=== PATIENT | male | born 1995 | race Caucasian/White ===

== ENCOUNTER 2024-07-07 19:55 | Emergency (ER) | payer OTHER, SELFPAY ==
[2024-07-07 20:00] VITALS: BP 126/79
[2024-07-07] MEDS: MOTRIN 600 MG PO (20:09)
[2024-07-07 21:29] VITALS: BMI 34.6
--- NOTE | 2024-07-07 22:29 | ED.GENMED ---
History of Present Illness
General
Chief Complaint: Cold/Flu/URI Symptoms
Source: patient
Exam Limitations: none
Time Seen by Provider: 07/07/24 21:53
Nursing documentation reviewed up to this point in time: agreed with
History of Present Illness
History of Present Illness:
Patient to ED for flu like symptoms. Symptoms started today. He was seen at and diagnosed with flu. Patient reports high fever and was unsure of what medication to take. Brought self to ED for eval.
Past History
Past History
ED Past Medical History: Asthma and Other (Psoriatic arthritis)
ED Past Surgical History: Other (Eye surgery)
Social History
Tobacco: Non-smoker
Alcohol: None
Drug: None
Personal: Single
Living: with family
Employment: Student
Family History
Family History: Other (Noncontributory)
Review of Systems
Review of Systems
Allergies reviewed?: Yes
All Other Systems: ROS reviewed and negative except as documented in HPI and ROS
Constitutional: Reports fever and fatigue
EENT: Reports no symptoms
Respiratory: Reports cough
Cardiac: Reports no symptoms
ABD/GI: Reports no symptoms
: Reports no symptoms
Musculoskeletal: Reports no symptoms
Skin: Reports no symptoms
Neurological: Reports no symptoms
Psychiatric: Reports no symptoms
Phy Exam
General Physical Exam
General Presentation: mild distress
General age: appears stated age
General Skin: warm and dry
General Habitus: normal
General Mental: alert
ENT Exam
ENT Exam: EOMI, TM's normal and neck supple
Cardiovascular Exam
Cardiovascular Exam: regular rate/rhythm and no edema
Pulmonary Exam
Pulmonary Exam: lungs clear and no respiratory distress
Musculoskeletal Exam
Musculoskeletal Exam: full ROM and neuro vasc intact
Skin Exam
Skin Exam: normal color, warm/dry and no rash
Psychiatric Exam
Psychiatric Exam: normal mood/affect
Sepsis
Sepsis Screening
Sepsis Assessment: Sepsis Ruled Out
Sepsis Screen
Sepsis Screen: Sepsis Ruled Out
Date: 07/07/24
Time: 22:37
Course
Orders/Labs/Results
Orders:
Orders
07/07/24 20:07
Ibuprofen [Motrin] 600 mg .ROUTE .STK-MED ONE
07/07/24 20:09
Ibuprofen [Motrin] 600 mg PO NOW STA
07/07/24 22:25
Oseltamivir Phosphate [Tamiflu] 75 mg PO NOW STA
Vital Signs
Initial and Last Documented VS:
Initial Vital Signs
Temp Pulse Resp BP Pulse Ox
100.8 F H 110 16 126/79 100
07/07/24 20:00 07/07/24 20:00 07/07/24 20:00 07/07/24 20:00 07/07/24 20:00
Last Documented Vital Signs
Temp Pulse Resp BP Pulse Ox
98.8 F 78 18 126/79 94
07/07/24 22:32 07/07/24 22:32 07/07/24 22:32 07/07/24 20:00 07/07/24 22:32
*Critical Care Note
Total Time (30-74mins, 75-104mins- exclusive of procedures): Not Applicable
Update Note
Update Note:
Patient to ED for flu symptoms. Tested pos at . 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 Fever reduced in waiting room. Now with temp on 98.6. HR 72, reg., pulse ox 95% RA. Tamiflu started in dept. WIll discharge home and he will follow up with PCP. Given
instructions on s/s to return to ED and he is agreeable to plan
ED Attending Note
-
Portions of this chart may have been created with voice recognition software.� Occasional wrong word or��sound alike� substitutions may have occurred due to the inherent limitations of voice recognition software.
Discharge Plan
Departure
Patient Disposition: Home (Routine Discharge)
Date of Disposition: 07/07/24
Time of Disposition: 22:26
Patient with high blood pressure during this ER visit?: No
Condition: Good
Covid-19: Not Applicable
Discharge Problem:
Influenza A
Instructions: Fever, Adult (DC), Flu in adults - Discharge instructions
Prescriptions:
New
oseltamivir [Tamiflu] 75 mg capsule
75 mg PO BID Qty: 10 0RF
No Action
Psoriatic Arthritis Injection
1 dose SC [id number]
zolpidem [Ambien CR] 12.5 MG tablet,ext release multiphase
12.5 mg PO HS PRN (Reason: sleep)
acetaminophen 325 MG tablet
650 mg PO Q6HPRN PRN (Reason: mild pain/ fever>100.5F) 0RF
polyethylene glycol 3350 17 GRAMS powder in packet
17 grams PO DAILY 0RF
amoxicillin-pot clavulanate 1 TABLET tablet
1 tab PO Q12 Qty: 8 0RF
hydrocortisone 2.5 % cream with perineal applicator
1 applic HI HS PRN (Reason: hemorrhoids) Qty: 30 0RF
Referrals:
Alexis Ellsworth MD [Family Provider] - Follow up in 2-3 days
Stand Alone Forms: Return to Work
Activity Restrictions/Additional Instructions:
For fever take tylenol 1000mg (2 extra strength) every 6 hours. ALternate with ibuprofen 600mg every 6-8 hours. Increase your water intake.
Interventions
Interventions:
*Risk Screen - Suicide Last Done: 07/07/24 20:00
*General Assessment Last Done: 07/07/24 20:00
*Neglect/Abuse Screening Last Done: 07/07/24 20:00
ED- Pulmonary Assessment Last Done: 07/07/24 21:29
Discharge Date and Time
Print Language: HONDURAN
[2024-07-07] MEDS: TAMIFLU 75 MG PO (22:44)
== END 2024-07-07 23:05 | disposition home or self-care (01) ==
LOC: EMR 19:55
PROVIDERS: EMERGENCY PHYSICIAN Student in an Organized Health Care Education/Training Program; FAMILY PHYSICIAN Internal Medicine
DX: J10.1 Influenza due to other identified influenza virus with other respiratory manifestations (principal); J45.909 Unspecified asthma, uncomplicated
CPT/HCPCS: 99283

== ENCOUNTER → 2024-07-26 12:06 | Outpatient (REF) | payer OTHER, SELFPAY | LOC: RAD 12:06 | PROVIDERS: ATTENDING PHYSICIAN Physician Assistant | DX: J10.1 Influenza due to other identified influenza virus with other respiratory manifestations (principal) | CPT/HCPCS: 71046 ==

== ENCOUNTER 2024-07-29 16:09 | Emergency (ER) | payer OTHER, SELFPAY ==
[2024-07-29 16:11] VITALS: BP 110/65
[2024-07-29 16:32] LABS: % Basophils 0.5 % (0-2); % Eosinophils 0.4 % (0-6); % Immature Granulocytes 0.4 % (0-0.5); % Lymphocytes 6.5 % (20.5-51.1); % Neutrophils 78.2 % (42.2-75.2); Absolute Lymphocytes 0.5 10^3/uL (1.2-3.4); Absolute Monocytes 1.1 10^3/uL (0.1-0.6); Absolute Neutrophils 6.1 10^3/uL (1.4-6.5); Hematocrit 37.5 % (39.0-52.0); Hemoglobin 13.3 g/dL (13.0-18.0); Mean Corp Hgb Conc. 35.5 g/dL (33.0-37.0); Mean Corpuscular Hgb 29.6 pg (27.0-31.0); Mean Corpuscular Volume 83.3 fL (80.0-94.0); Mean Platelet Volume 10.9 fL (7.4-10.4); Nucleated Red Blood Cells % 0 % (-); Platelet Count 231 10^3/uL (130-400); Red Cell Dist. Width 12.7 % (11.5-14.5); White Blood Cell Count 7.7 10^3/uL (4.8-10.8)
[2024-07-29 16:45] LABS: ALT (SGPT) 22 U/L (0-50); AST (SGOT) 20 U/L (17-59); Albumin 4.2 g/dl (3.5-5.0); Alkaline Phosphatase 62 U/L (38-126); Blood Urea Nitrogen 15 mg/dl (9-20); Calcium 9.2 mg/dl (8.4-10.2); Carbon Dioxide 25 mmol/L (22-30); Chloride 99 mmol/L (98-107); Glucose 105 mg/dl (70-99); Potassium 4.1 mmol/L (3.5-5.1); Sodium 134 mmol/L (135-145); Total Bilirubin 0.8 mg/dl (0.2-1.3); Total Protein 6.5 g/dl (6.3-8.2); eGFR > 60.00
[2024-07-29 16:55] LABS: COVID-19 Antigen Negative (Negative); Troponin I < 0.012 ng/ml
[2024-07-29 18:03] VITALS: BP 134/69
--- NOTE | 2024-07-29 18:33 | ED.GENMED ---
History of Present Illness
General
Chief Complaint: Cold/Flu/URI Symptoms
Time Seen by Provider: 07/29/24 17:51
History of Present Illness
History of Present Illness:
28-year-old male with history of anxiety and depression presenting to the emergency department for fever, chills, body aches. Patient reports symptoms started today. Does note that 3 weeks ago he was diagnosed with the flu, with symptoms lasting
about a week. Patient did have interval improvement. Today he went to work and his boss noted that he did not look well. His boss subsequently took him to the hospital. Patient denies any vomiting or abdominal pain. Patient notes minimal cough.
He does note that when he got to the hospital, started developed left upper abdominal pain. Denies any surgeries in the abdomen in the past. Denies additional acute medical complaints.
Past History
Past History
ED Past Medical History: Asthma and Other (Psoriatic arthritis)
ED Past Surgical History: Other (Eye surgery)
Social History
Tobacco: Non-smoker
Alcohol: None
Drug: None
Personal: Single
Living: with family
Employment: Student
Family History
Family History: Other (Noncontributory)
Phy Exam
Physical Exam
Physical Exam:
General: Well-appearing, no clinical signs of dehydration, nontoxic and in no acute distress
HEENT: protecting airway
Neck: appears supple
CV: Normal heart rate, regular rhythm
Resp: No accessory muscle use, no increased work of breathing, lungs clear to auscultation bilaterally
Abd: Soft and non-distended, tenderness to the left upper quadrant of the abdomen without rebound or guarding
Extremities: No deformities, no swelling
Neuro: alert, no focal neurologic deficit
: deferred
Rectal: deferred
Psych: Normal affect
Skin: Intact
Course
Orders/Labs/Results
Orders:
Orders
07/29/24 16:10
ECG [Electrocardiogram (*1)] Urgent
Reason for Study: Chest Pain
EKG- Treatment ONCE
07/29/24 16:25
COVID-19 Antigen Urgent
Source: Nasal Swab
Complete Blood Count/With Diff Urgent
Comprehensive Metabolic Panel Urgent
Troponin I Urgent
Influenza A+B Rapid Molecular Urgent
CARLITOS Source: Nasal Swab
Specimen Description:
07/29/24 17:51
CR Chest - 2 Views Urgent
Comment:
Reason For Exam: flu symptoms
07/29/24 18:10
CT Abd/pelvis W Iv Cont Urgent
Comment:
Reason For Exam: fever, LUQ pain
0.9% Sodium Chloride 1000 ml [Nss] 1,000 ml IV BOLUS
Acetaminophen [Tylenol] 1,000 mg PO NOW STA
07/29/24 20:54
Piperacillin/Tazo 4.5 Gram [Zosyn] 4.5 gram in 100 ml IV NOW
Abnormal Lab Results
07/29/24
16:25
RBC 4.50 L 10^6/uL
(4.70-6.10)
Hct 37.5 L %
(39.0-52.0)
MPV 10.9 H fL
(7.4-10.4)
Absolute Lymphs (auto) 0.5 L 10^3/uL
(1.2-3.4)
Absolute Monos (auto) 1.1 H 10^3/uL
(0.1-0.6)
Neutrophils % 78.2 H %
(42.2-75.2)
Lymphocytes % 6.5 L %
(20.5-51.1)
Monocytes % 14.0 H %
(1.7-9.3)
Sodium 134 L mmol/L
(135-145)
Glucose 105 H mg/dl
(70-99)
07/29/24 16:25
07/29/24 16:25
Vital Signs
Initial and Last Documented VS:
Initial Vital Signs
Temp Pulse Resp BP Pulse Ox
101.2 F H 109 18 110/65 96
07/29/24 16:11 07/29/24 16:11 07/29/24 16:11 07/29/24 16:11 07/29/24 16:11
Last Documented Vital Signs
Temp Pulse Resp BP Pulse Ox
98.4 F 91 19 120/67 94
07/29/24 20:52 07/29/24 20:15 07/29/24 20:15 07/29/24 20:00 07/29/24 20:15
MDM/Problems Addressed
MDM/Problems Addressed:
28-year-old male presenting to the emergency department for fever, chills, body aches, which started today. Vital signs on arrival are significant for fever
On exam patient is resting comfortably, no acute distress. Overall benign examination. Lungs are clear to auscultation. Abdomen is soft and nondistended, however does have new pain to the upper abdomen. Ultimately continue suspect viral
syndrome. Patient had COVID and flu, negative. Given reproducible tenderness, will plan for CT abdominal imaging. Will also obtain x-ray imaging, possible lower left pneumonia given location of pain. Tylenol administered for fever.
20:50 -patient's labs are unremarkable, however CT shows concern for a left-sided severe pneumonia, with focal area of abscess collection. Given appearance of pneumonia, ultimate plan for admission for IV antibiotics, pulmonary consultation for
potential bronchoscopy. When sharing results with patient, patient adamantly refusing to stay in hospital for social reasons he would like to try oral antibiotics. Explained to patient that oral antibiotics are unlikely to completely treat
pneumonia given component of abscess. Patient will be leaving AGAINST MEDICAL ADVICE. Explained to patient that his infection could worsen, leading to sepsis and respiratory arrest. Patient understands the risks and reports that he will refuse
with any acute worsening of symptoms. He is agreeable to staying for 1 dose IV antibiotics.
21:30 -patient is change his mind, agreeable to staying in the hospital. Will discuss with hospitalist
*Critical Care Note
Total Time (30-74mins, 75-104mins- exclusive of procedures): Not Applicable
ED Attending Note
-
Portions of this chart may have been created with voice recognition software.� Occasional wrong word or��sound alike� substitutions may have occurred due to the inherent limitations of voice recognition software.
Discharge Plan
Departure
Patient Disposition: Admit
Date of Disposition: 07/29/24
Time of Disposition: 20:58
Patient with high blood pressure during this ER visit?: No
Condition: Fair
Discharge Problem:
Left lower lobe pneumonia, Abscess of lower lobe of left lung with pneumonia
Instructions: Lung Abscess (DC), Pneumonia in adults - ED discharge instructions
Prescriptions:
No Action
Psoriatic Arthritis Injection
1 dose SC [id number]
zolpidem [Ambien CR] 12.5 MG tablet,ext release multiphase
12.5 mg PO HS PRN (Reason: sleep)
acetaminophen 325 MG tablet
650 mg PO Q6HPRN PRN (Reason: mild pain/ fever>100.5F) 0RF
polyethylene glycol 3350 17 GRAMS powder in packet
17 grams PO DAILY 0RF
amoxicillin-pot clavulanate 1 TABLET tablet
1 tab PO Q12 Qty: 8 0RF
hydrocortisone 2.5 % cream with perineal applicator
1 applic CO HS PRN (Reason: hemorrhoids) Qty: 30 0RF
oseltamivir [Tamiflu] 75 mg capsule
75 mg PO BID Qty: 10 0RF
Referrals:
Alexis Ellsworth MD [Family Provider] -
Interventions
Interventions:
*Risk Screen - Suicide Last Done: 07/29/24 16:11
*General Assessment Last Done: 07/29/24 16:11
*Neglect/Abuse Screening Last Done: 07/29/24 16:11
*ED- Fall Risk Assessment Last Done: 07/29/24 18:41
*ED COVID-19 Vaccine History Last Done: 07/29/24 16:11
ED- Pulmonary Assessment Last Done: 07/29/24 18:40
Discharge Date and Time
Print Language: UKRAINIAN
[2024-07-29] MEDS: TYLENOL 1000 MG PO (18:42)
[2024-07-29] MEDS: NSS 1000 IV (18:50)
[2024-07-29 18:51] VITALS: BMI 35.7
[2024-07-29 19:00] VITALS: BP 122/61
[2024-07-29 20:00] VITALS: BP 120/67
[2024-07-29 21:00] VITALS: BP 113/79
[2024-07-29] MEDS: ZOSYN 100 IV (21:15)
== END 2024-07-29 22:07 | disposition left against medical advice (07) ==
LOC: EMR 16:09
PROVIDERS: Emergency Medicine; EMERGENCY PHYSICIAN Student in an Organized Health Care Education/Training Program; FAMILY PHYSICIAN Internal Medicine
DX: J18.9 Pneumonia, unspecified organism (principal); J85.1 Abscess of lung with pneumonia; J45.909 Unspecified asthma, uncomplicated; Z11.52 Encounter for screening for COVID-19; Z53.29 Procedure and treatment not carried out because of patient's decision for other reasons
CPT/HCPCS: 99285; 96365; 96361; 71046; 74177; 80053; 84484; 85025; 87502; 87811; 93005; Q9967

== ENCOUNTER 2024-07-30 02:08 | Inpatient (IN) | payer OTHER, SELFPAY ==
[2024-07-30] VITALS (7 sets, daily range): BP systolic 121–151; BP diastolic 61–85; BMI 34.7; BMI 34.0
--- NOTE | 2024-07-30 00:54 | ED.GENMED ---
History of Present Illness
General
Chief Complaint: Fever
Source: patient, previous radiology exam (Chest x-ray as well as CT abdomen pelvis from yesterday showing severe left lower lobe pneumonia with concern for abscess formation) and previous hospital records (ED visit yesterday with complaints of
fever, mild cough, left upper quadrant discomfort. Found to have significant left lower lobe pneumonia with concern for abscess formation)
Exam Limitations: none
Time Seen by Provider: 07/30/24 00:50
Nursing documentation reviewed up to this point in time: agreed with
Past History
Past History
ED Past Medical History: Asthma and Other (Psoriatic arthritis)
ED Past Surgical History: Other (Eye surgery)
Social History
Tobacco: Non-smoker
Alcohol: None
Drug: None
Personal: Single
Living: with family
Employment: Student
Family History
Family History: Other (Noncontributory)
Sepsis
Sepsis Screen
Sepsis Screen: Possible Sepsis
Date: 07/30/24
Time: 00:54
Course
Vital Signs
Initial and Last Documented VS:
Initial Vital Signs
Temp Pulse Resp BP Pulse Ox
101.4 F H 97 24 151/66 98
07/30/24 00:12 07/30/24 00:12 07/30/24 00:12 07/30/24 00:12 07/30/24 00:12
Last Documented Vital Signs
Temp Pulse Resp BP Pulse Ox
101.4 F H 97 24 151/66 98
07/30/24 00:12 07/30/24 00:12 07/30/24 00:12 07/30/24 00:12 07/30/24 00:12
ED Attending Note
-
Portions of this chart may have been created with voice recognition software.� Occasional wrong word or��sound alike� substitutions may have occurred due to the inherent limitations of voice recognition software.
Discharge Plan
Departure
Prescriptions:
No Action
Psoriatic Arthritis Injection
1 dose SC [id number]
zolpidem [Ambien CR] 12.5 MG tablet,ext release multiphase
12.5 mg PO HS PRN (Reason: sleep)
acetaminophen 325 MG tablet
650 mg PO Q6HPRN PRN (Reason: mild pain/ fever>100.5F) 0RF
polyethylene glycol 3350 17 GRAMS powder in packet
17 grams PO DAILY 0RF
amoxicillin-pot clavulanate 1 TABLET tablet
1 tab PO Q12 Qty: 8 0RF
hydrocortisone 2.5 % cream with perineal applicator
1 applic IN HS PRN (Reason: hemorrhoids) Qty: 30 0RF
oseltamivir [Tamiflu] 75 mg capsule
75 mg PO BID Qty: 10 0RF
Referrals:
Alexis Ellsworth MD [Family Provider] -
Interventions
Interventions:
*Risk Screen - Suicide Last Done: 07/30/24 00:12
Discharge Date and Time
Print Language: RWANDAN
--- NOTE | 2024-07-30 01:03 | ED.GENMED ---
History of Present Illness
General
Chief Complaint: Fever
Source: patient
Exam Limitations: none
Time Seen by Provider: 07/30/24 00:50
History of Present Illness
History of Present Illness:
28-year-old male recently with the flu. Got over the flu but today started having increased cough shortness of breath. Body aches. Started earlier today. Flu was 3 weeks ago.
Past History
Past History
ED Past Medical History: Asthma and Other (Psoriatic arthritis)
ED Past Surgical History: Other (Eye surgery)
Social History
Tobacco: Non-smoker
Alcohol: None
Drug: None
Personal: Single
Living: with family
Employment: Student
Family History
Family History: Other (Noncontributory)
Review of Systems
Review of Systems
All Other Systems: Not applicable
Constitutional: Reports fever, fatigue and chills
Respiratory: Reports cough and trouble breathing
Phy Exam
Physical Exam
Physical Exam:
GENERAL: Alert and oriented in no apparent distress
EYE: Orbits normal.
NECK: Supple, no significant adenopathy.
ENT: Pharynx without erythema
CARDIAC: Regular rate and rhythm without any obvious murmurs.
LUNGS: Mild tachypnea with rhonchi and dry rales left base
ABDOMEN: Soft, without focal tenderness or distention
NEUROLOGICAL: Alert and oriented , grossly non-focal
SKIN: Warm and dry, no rash or lesion, no discoloration, skin intact.
MUSCULOSKELETAL: No edema,no deformity.Good color
PSYCH: Normal and appropriate interaction.
Sepsis
Sepsis Screening
Sepsis Assessment: Sepsis Ruled Out
Sepsis Screen
Sepsis Screen: Sepsis Ruled Out
Date: 07/30/24
Time: 01:06
Course
Orders/Labs/Results
Orders:
Orders
07/30/24 01:02
Azithromycin 500 mg IVPB NOW Azithromycin 500 mg/250 ml [Zithromax Infusion] 500 mg in 250 ml IV NOW
Vital Signs
Initial and Last Documented VS:
Initial Vital Signs
Temp Pulse Resp BP Pulse Ox
101.4 F H 97 24 151/66 98
07/30/24 00:12 07/30/24 00:12 07/30/24 00:12 07/30/24 00:12 07/30/24 00:12
Last Documented Vital Signs
Temp Pulse Resp BP Pulse Ox
101.4 F H 97 24 151/66 98
07/30/24 00:12 07/30/24 00:12 07/30/24 00:12 07/30/24 00:12 07/30/24 00:12
MDM/Problems Addressed
Differential Diagnosis Includes:
Patient was appropriately advised admission earlier today for a severe pneumonia left lower lobe with a possible abscess. Patient returns for definitive management. Zosyn was given at 2100. We will give a dose of azithromycin. No further testing
needed. Referred for admission.
*Pulse Oximetry
Patient hypoxic: no
*Critical Care Note
Total Time (30-74mins, 75-104mins- exclusive of procedures): Not Applicable
Data Reviewed
Review of Other/Old Records Reveals: Labs, Records, Radiology Studies and Testing
ED Attending Note
-
Portions of this chart may have been created with voice recognition software.� Occasional wrong word or��sound alike� substitutions may have occurred due to the inherent limitations of voice recognition software.
Discharge Plan
Departure
Patient Disposition: Admit
Date of Disposition: 07/30/24
Time of Disposition: 01:06
Presentation/result/management discussed w/ accepting MD/DO: Hospitalist
Discharge Problem:
Severe left lower lobe pneumonia/abscess, History of psoriatic arthritis
Prescriptions:
No Action
Psoriatic Arthritis Injection
1 dose SC [id number]
zolpidem [Ambien CR] 12.5 MG tablet,ext release multiphase
12.5 mg PO HS PRN (Reason: sleep)
acetaminophen 325 MG tablet
650 mg PO Q6HPRN PRN (Reason: mild pain/ fever>100.5F) 0RF
polyethylene glycol 3350 17 GRAMS powder in packet
17 grams PO DAILY 0RF
amoxicillin-pot clavulanate 1 TABLET tablet
1 tab PO Q12 Qty: 8 0RF
hydrocortisone 2.5 % cream with perineal applicator
1 applic TN HS PRN (Reason: hemorrhoids) Qty: 30 0RF
oseltamivir [Tamiflu] 75 mg capsule
75 mg PO BID Qty: 10 0RF
Referrals:
Alexis Ellsworth MD [Family Provider] -
Interventions
Interventions:
*Risk Screen - Suicide Last Done: 07/30/24 00:12
*ED- Fall Risk Assessment Last Done: 07/30/24 01:05
*ED COVID-19 Vaccine History Last Done: 07/30/24 01:05
Discharge Date and Time
Print Language: SLOVENIAN
[2024-07-30] MEDS: TYLENOL 1000 MG PO (01:22)
[2024-07-30] MEDS: NSS 1000 IV ×4 (01:33→23:38)
[2024-07-30] MEDS: ZITHROMAX INFUSION 250 IV (01:35)
--- NOTE | 2024-07-30 01:58 | HPS.HSE ---
Family Physician
-
Family Physician: Alexis Ellsworth MD
Chief Complaint
-
Fever, Diaphoresis, Malaise
History of Present Illness
Patient is a 28y M with PMH significant for psoriatic arthritic and autism who presents to ED complaining of fever, diaphoresis, malaise and myalgias. Patient notes that he had influenza / tested positive about 3 weeks ago. He notes that his
symptoms improved but never fully resolved. Today he developed sudden worsening in his symptoms including diaphoresis, chills, myalgias and fatigue. He also noted LUQ abdominal pain that was worse with deep breathing or movement.
Patient presented to the ED for further evaluation and treatment.
CT imaging reveals LLL pneumonia / small abscess.
Patient is on Cosentyx for psoriatic arthritis. His last dose was 'about a month ago'.
Patient denies any recent travel or known sick contacts.
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
Medical History
Past Medical History
Past Medical History: Reports Other
Additional Past Medical History:
Psoriatic Arthritis
Autism / Asperger's
Asthma (childhood)
Bipolar Depression
Past Surgical History: Reports Other
Additional Past Surgical History:
Eye Surgery (childhood)
Cosmetic Surgery
Social History
Tobacco: Non-smoker
Alcohol: None
Drug: None
Family History
Family History: Not pertinent
Allergies / Home Medications
Allergies reflects when Allergies were last updated in [facility].
Home Medications with original date entered in [facility]
Allergy/Medication List:
Allergies
Allergy/AdvReac Type Severity Reaction Status Date / Time
No Known Allergies Allergy Verified 07/30/24 01:05
Home Medications
zolpidem 12.5 mg tablet,extended release,multiphase (Ambien CR) 12.5 mg PO HS PRN sleep 06/22/20
acetaminophen 325 mg tablet 650 mg (2 x 325 mg) PO Q6HPRN PRN mild pain/ fever>100.5F 06/28/20
secukinumab 150 mg/mL subcutaneous syringe (Cosentyx) 300 mg SC Q4W 07/30/24
sertraline 100 mg tablet 150 mg PO DAILY 07/30/24
tirzepatide (weight loss) 12.5 mg/0.5 mL subcutaneous pen injector (Zepbound) 12.5 mg SC QWEEK 07/30/24
Review of Systems
-
History Source: Patient
A 12 point ROS was completed and negative except as noted: Yes
Constitutional: Reports Fever, Fatigue and Chills
EENT: Denies Sore Throat
Respiratory: Reports Cough; Denies Trouble Breathing
Cardiac: Denies Chest Pain or Palpitations
Abdomen/GI: Reports Abdominal Pain; Denies Nausea, Vomiting or Diarrhea
: Denies Dysuria, Frequency or Flank Pain
Musculoskeletal: Reports Muscle Pain; Denies Joint Pain or Edema
Neurological: Denies Dizzy or Headache
Psych: Denies Depression or Anxiety
Physical Exam
Vital Signs
Vital Signs
Temp Pulse Resp BP Pulse Ox
101.1 F H 91 20 122/64 98
07/30/24 01:09 07/30/24 01:09 07/30/24 01:09 07/30/24 01:09 07/30/24 01:09
Physical Exam
General: Other (28y M in no acute distress. Pos diaphoretic.)
HEENT: Moist mucous membranes and PERRLA
Respiratory: Other (Decreased BS at the L base - otherwise clear.)
Cardiac: S1/S2 and Regular Rhythm; No Murmur
GI: Soft, Non Tender, Non Distended and Normal Bowel Sounds
Musculoskeletal: No Clubbing, No Cyanosis and No Edema
Neuro: AO x 3
Impression/Plan
-
A/P: Patient is a 28y M with PMH significant for psoriatic arthritic on Cosentyx who presents to ED complaining of fevers, chills, myalgias and malaise.
LLL Pneumonia / Abscess
Sepsis secondary to the above
- Admit for further evaluation and treatment.
- Patient presents with fever, tachycardia and tachypnea with imaging showing LLL pneumonia and abscess.
- Immunocompromised host on Cosentyx.
- IV abx with Unasyn for now.
- ID and Pulmonary evaluations for additional recommendations.
- Follow-up available culture data.
- Follow for clinical improvement.
Psoriatic Arthritis
- No active joint symptoms at present.
- Hold Cosentyx acutely (last dose almost one month ago per patient).
Bipolar Depression
Autism
- Stable. Continue sertraline.
DVT Prophylaxis: Lovenox
Code Status: Full
--- NOTE | 2024-07-30 05:04 | PTCARENOTE ---
Pt aaox3 able to make his needs known.Denies pain or any other complaints.Pt oriented to room and call vargas in reach.Pt encouraged to call for help as needed.Pt bought medications from home, medications send to pharmacy and verified.Plan of care
continued on pt.
[2024-07-30] MEDS: UNASYN IV ×4 (05:50→23:39)
[2024-07-30 06:35] LABS: Hematocrit 37.4 % (39.0-52.0); Hemoglobin 12.7 g/dL (13.0-18.0); Mean Corpuscular Hgb 29.2 pg (27.0-31.0); Mean Platelet Volume 11.9 fL (7.4-10.4); Platelet Count 173 10^3/uL (130-400); Red Blood Cell Count 4.35 10^6/uL (4.70-6.10); Red Cell Dist. Width 12.6 % (11.5-14.5); White Blood Cell Count 4.8 10^3/uL (4.8-10.8)
[2024-07-30 07:33] LABS: Blood Urea Nitrogen 11 mg/dl (9-20); Calcium 8.7 mg/dl (8.4-10.2); Carbon Dioxide 24 mmol/L (22-30); Chloride 101 mmol/L (98-107); Estimated Creatinine Clearance > 125 ml/min; Glucose 99 mg/dl (70-99); Potassium 4.3 mmol/L (3.5-5.1); Sodium 134 mmol/L (135-145); eGFR > 60.00
--- NOTE | 2024-07-30 10:02 | CON.PUL ---
Consultation
Consultation Request
Date/Time Consultation Requested: 07/30/2024-8 AM
Date/Time Consultation Performed: 07/30/2024-8:30 AM
Requesting Provider: Hospitalist
Performing Provider: Dr. Joy
Reason for Consultation: Pulmonary abscess
Medical History
-
Chief Complaint: Shortness of breath
History of Present Illness:
28-year-old male with a history of psoriatic arthritis and autism in addition to bipolar somewhat immunosuppressed on Cosentyx last dose 4 weeks ago presented with history of influenza 3 weeks ago with subsequent development of cough, shortness of
breath, chest congestion found to have left lower lobe pneumonia and small abscess-pulmonary consulted for pneumonia/abscess 07/30/2024. He states that several days ago he started with some chest congestion. He does not complain of significant
shortness of breath at rest, chest pain, chest tightness, pleurisy, wheezing, but does admit to some chest congestion but inability to mobilize his secretions. He does snore at night and was told he did not have sleep apnea on a sleep study 12
years ago. Does not always feel refreshed. He denies any abdominal pain nausea, focal weakness or increased lower extremity swelling.
Past Medical History
Past Medical History: None (Psoriatic arthritis. Immunocompromised-on Cosentyx. Autism. Bipolar.)
Social History
Tobacco: Vaping
Alcohol: None
Drug: None
Personal: Single
Occupational Exposures: No known asbestos exposure
Environmental Exposures: no known tuberculosis exposure
Family History
Family History: Reviewed & Not Pertinent
Allergies / Home Medications
Allergies
Allergy/AdvReac Type Severity Reaction Status Date / Time
No Known Allergies Allergy Verified 07/30/24 01:05
Home Medications
�Medication �Instructions �Recorded �Confirmed �Last Taken �Type
zolpidem 12.5 mg tablet,extended 12.5 mg PO HS PRN sleep 06/22/20 07/30/24 Unknown History
release,multiphase (Ambien CR)
acetaminophen 325 mg tablet 650 mg (2 x 325 mg) PO Q6HPRN PRN 06/28/20 07/30/24 Unknown Rx
mild pain/ fever>100.5F
secukinumab 150 mg/mL subcutaneous 300 mg SC Q4W 07/30/24 07/30/24 Unknown History
syringe (Cosentyx)
sertraline 100 mg tablet 150 mg PO DAILY 07/30/24 07/30/24 Unknown History
tirzepatide (weight loss) 12.5 12.5 mg SC QWEEK 07/30/24 07/30/24 Unknown History
mg/0.5 mL subcutaneous pen
injector (Zepbound)
Review of Systems
-
Unable to Obtain full review of systems at this time due to: Other (Per HPI)
Vitals / Labs / Diagnostic Testing
Vital Signs
Temp Pulse Resp BP Pulse Ox
99.5 F 92 16 130/71 97
07/30/24 07:55 07/30/24 07:55 07/30/24 07:55 07/30/24 07:55 07/30/24 07:55
Lab Data
07/30/24 05:42
07/30/24 05:42
Diagnostic Testing:
Physical Exam
-
Exam:
Well-nourished and well-developed in no apparent distress
HEENT-atraumatic, normocephalic
Neck-supple, no JVD, no bruit
Heart-regular rate and rhythm-no murmurs, rubs or gallops
Chest with mildly diminished breath sounds at the left base but no crackles or wheezing
Back without tenderness
Abdomen-soft, nontender, nondistended, no hepatosplenomegaly
Extremities-no cyanosis, clubbing, edema and good peripheral pulses
Integument-intact, no rashes, lesions or ecchymosis
Neurology-alert and oriented, nonfocal motor and sensory exam
Assessment
-
28-year-old male with a history of psoriatic arthritis and autism in addition to bipolar somewhat immunosuppressed on Cosentyx last dose 4 weeks ago presented with history of influenza 3 weeks ago with subsequent development of cough, shortness of
breath, chest congestion found to have left lower lobe pneumonia and small abscess-pulmonary consulted for pneumonia/abscess 07/30/2024.
Left lower lobe community-acquired pneumonia with small pulmonary abscess
Recent influenza-3 weeks ago
Mild normocytic anemia-hemoglobin 12.7
Conditions present prior to admission:
Psoriatic arthritis.
Immunocompromised-on Cosentyx.
Autism.
Bipolar.
Plan
Respiratory decompensation likely bacterial pneumonia after influenza in this immunocompromised patient
Supplemental oxygen if needed
Assess discharge supplemental oxygen needs prior to discharge
Nebulizers if needed-currently not bronchospastic
Mucolytic's
Mucus clearing devices including chest physiotherapy to left base
Consider vest therapy
Check cultures
Sputum culture if able including routine, fungal and AFB
Bronchoscopy if cannot produce sputum and clinically does not improve-hold off for now
Empiric antibiotics for now-extended course 14 to 21 days at a minimum with close outpatient radiographic [id number] with hospitalist
Follow hemoglobin
Sleep apnea suspected-reports negative study 12 years ago, now with snoring, and other signs and symptoms of potential sleep apnea
DVT prophylaxis-on Lovenox
Nutrition
Early mobilization
Outpatient pulmonary/sleep disorders follow-up
Diagnostic data:
Chest x-ray 09/14/2021-NAD
Chest x-ray 07/26/2024-NAD
Chest x-ray 07/29/2024-moderate left lower lobe pneumonia
CT abdomen and pelvis 07/29/2024-large 5.2 cm dense consolidation in the posterior basilar left lower lobe consistent with pneumonia which also appears to contain about 1.6 cm central abscess, moderate splenomegaly, mild hepatomegaly, colonic
diverticulosis, small right renal cyst, left renal angiolipoma and nonobstructing left intrarenal renal calculus
--- NOTE | 2024-07-30 11:19 | CON.ID ---
Consultation
-
Date/Time Consultation Requested: 07/30/24 4:05
Date/Time Consultation Performed: 07/30/24 11:20
Requesting Provider: Dr Miller
Performing Provider: Dr Amado
Reason for Consultation: LLL Pneumonia / Abscess
Chief Complaint / Past History
Chief Complaint
Fever, Diaphoresis, Malaise
History of Present Illness
Mr De La Fuente is a 28 year old male with history of psoriatic arthritis (cosentyx) and autism who presented here for fevers, diaphoresis, malaise and myalgias. Symptoms first began about 3 weeks ago with a bout of influenza, symptoms did not fully
resolve then on 07/29 he noted relapse of sweating, chills, myalgias, fatigue and LUQ abdominal pain. Last dose of cosentyx was about 1 month ago.
Since arrival here patient has been febrile to 101.4, bp stable, he is saturating well on room air, wbc 4.8, hgb 12.7, plt 173, na 134, cr 0.7, CT a/p with IV contrast: Large 5.2 cm dense airspace consolidation in the POSTERIOR BASILAR LEFT LOWER
LOBE which is most consistent with SEVERE LEFT LOWER LOBE PNEUMONIA (possibly atypical bacterial or fungal pneumonia) which appears to contain a small 1.6 cm central abscess and HSM, CXR: MODERATE LEFT LOWER LOBE PNEUMONIA.
Past History
Additional Past Medical History:
Psoriatic Arthritis
Autism / Asperger's
Asthma (childhood)
Bipolar Depression
Additional Past Surgical History:
Eye Surgery (childhood)
Cosmetic Surgery
Allergy History:
No Known Allergies Allergy (Verified 07/30/24 01:05)
Medications Reviewed: Yes
Social History
Tobacco: Non-Smoker
Alcohol: None
Drug: None
Family History
Family History: Not Pertinent
Review of Systems
Review of Systems
General: Fever and Chills
All systems: All other systems were reviewed and were negative
Vital Signs
Temp Pulse Resp BP Pulse Ox
99.5 F 92 16 130/71 97
07/30/24 07:55 07/30/24 07:55 07/30/24 07:55 07/30/24 07:55 07/30/24 07:55
Physical Exam
Physical Exam
Constitutional: No Acute Distress and Obese
Cardiovascular: Regular Rate and S1/S2; Negative Murmur or Rub
Pulmonary: Clear and Symmetric; Negative Wheezes, Rales or Rhonchi
Gastrointestinal: Soft, Non Tender, Non Distended and Normal Bowel Sounds
Skin: Warm and Dry; Negative Rash or Jaundice
Lab / Diagnostic Study Results
07/30/24 05:42
07/30/24 05:42
Assessment / Plan
LLL Pneumonia/Abscess
Immunosuppression (cosyntex)
Psoriatic Arthritis
Autism/Asperbergs/bipolar
- blood cultures x2 given immunosuppression
- agree with sputum cultures
- follow up s pneumo urine antigen. legionella antigen per pulmonary
- influenza now negative
- agree with unasyn, agree with stopping azithromycin
- follow fever curve and symptomatically
--- NOTE | 2024-07-30 12:22 | W.PN.UPDATE ---
Update Note
Progress Note Update
Was seen and examined. Under the impression that he is having a bronchoscopy tomorrow. I discussed this with pulmonary if schedule allows then potentially as he is currently nontoxic appearing at this time.
Continue Unasyn for now. If no plans for bronchoscopy then transition to Augmentin for a prolonged course for up to 14 to 21 days with outpatient pulmonary follow-up
--- NOTE | 2024-07-30 16:06 | CM ---
Alert awake oriented patient who lives alone in a 1 story home with 0 step to enter. He is independent in driving and in all activities of daily living.He was offered VN he declined need.No adaptive device.
No VN hx / No SNF history
Pharmacy [facility] Deondre Manzo
PCP DR Mays
PLAN Home Declined VN
[2024-07-30] MEDS: TYLENOL 650 MG PO (17:58)
[2024-07-30] MEDS: MUCINEX 1200 MG PO (19:43)
[2024-07-30] MEDS: NON-FORMULARY ITEM 12.5 MG PO (21:08)
[2024-07-30] MEDS: ZOLOFT 150 MG PO (21:13)
[2024-07-31] MEDS: UNASYN IV (05:26)
[2024-07-31 06:00] VITALS: BMI 34.1
[2024-07-31 07:30] VITALS: BP 128/79
[2024-07-31] MEDS: NSS 1000 IV (09:02)
[2024-07-31] MEDS: MUCINEX 1200 MG PO (09:02)
--- NOTE | 2024-07-31 09:02 | W.PN.PUL.V3 ---
Today's Communication / Plan
-
Increase activity
Antibiotics
Outpatient radiographic follow-up
Bronchoscopy on hold
Assessment
-
28-year-old male with a history of psoriatic arthritis and autism in addition to bipolar somewhat immunosuppressed on Cosentyx last dose 4 weeks ago presented with history of influenza 3 weeks ago with subsequent development of cough, shortness of
breath, chest congestion found to have left lower lobe pneumonia and small abscess-pulmonary consulted for pneumonia/abscess 07/30/2024.
Left lower lobe community-acquired pneumonia with small pulmonary abscess
Recent influenza-3 weeks ago
Mild normocytic anemia-hemoglobin 12.7
Conditions present prior to admission:
Psoriatic arthritis.
Immunocompromised-on Cosentyx.
Autism.
Bipolar.
Plan
Respiratory decompensation likely bacterial pneumonia after influenza in this immunocompromised patient
Supplemental oxygen if needed
Assess discharge supplemental oxygen needs prior to discharge
Nebulizers if needed-currently not bronchospastic
Mucolytic's
Mucus clearing devices including chest physiotherapy to left base
Consider vest therapy
Cultures reviewed
Urine Legionella and streptococcal antigen negative
Sputum culture 07/31/2024-many WBCs, many squamous epithelial cells-test not performed
Sputum culture if able including routine, fungal and AFB
Bronchoscopy if cannot produce sputum and clinically does not improve-hold off for now
Empiric antibiotics for now-extended course 14 to 21 days at a minimum with close outpatient radiographic [id number] with hospitalist
Infectious disease following-correspondence reviewed
Follow leukocytosis-currently normal
Follow hemoglobin
Outpatient radiographic [id number] chest in 3-4 weeks after long course of antibiotics to ensure pneumonia/abscess/radiographic clearing
Sleep apnea suspected-reports negative study 12 years ago, now with snoring, and other signs and symptoms of potential sleep apnea
DVT prophylaxis-on Lovenox
Nutrition
Increase activity
Reviewed with hospitalist
Outpatient pulmonary/sleep disorders follow-up
Diagnostic data:
Chest x-ray 09/14/2021-NAD
Chest x-ray 07/26/2024-NAD
Chest x-ray 07/29/2024-moderate left lower lobe pneumonia
CT abdomen and pelvis 07/29/2024-large 5.2 cm dense consolidation in the posterior basilar left lower lobe consistent with pneumonia which also appears to contain about 1.6 cm central abscess, moderate splenomegaly, mild hepatomegaly, colonic
diverticulosis, small right renal cyst, left renal angiolipoma and nonobstructing left intrarenal renal calculus
Subjective Data
-
Date of Service:
Date of Service: July 31, 2024
Chief Complaint: Pulmonary Follow Up and Dyspnea Follow Up
Subjective:
No complaints of worsening shortness of breath, minimal chest congestion, minimal productive cough, no chest pain or pleurisy
Review of Systems
General: Other (Per HPI)
Objective Data
Data Reviewed
Vital Signs / I&O:
Vital Signs
Temp Pulse Resp BP Pulse Ox
97.7 F 78 18 122/70 98
07/30/24 23:43 07/30/24 23:43 07/30/24 23:43 07/30/24 23:43 07/30/24 23:43
Intake and Output
07/30/24 07/31/24 08/01/24
06:59 06:59 06:59
Intake Total 2094
Balance 2094
SaO2: 98
Physical Exam
General: Respiratory Distress (n) and Comfortable
HEENT: Normocephalic and Anicteric
Cardiovascular: Regular Rhythm
Respiratory: Wheeze (n), Crackles (n), Rhonchi (n), Non-Labored Respirations, Accessory Resp Muscle Use (n) and Stridor (n)
GI: Soft, Non Distended and Non Tender
Neurology: Awake, Alert and No Motor Deficits
Skin: Warm, Good Color, Cyanosis (n) and Jaundice (n)
Labs/Micro/Reports
Lab Data
07/30/24 05:42
07/30/24 05:42
Microbiology
07/31/24 06:07 Sputum Respiratory Culture - Final
07/31/24 06:07 Sputum Gram Stain - Final
07/31/24 06:10 Urine Legionella Urinary Antigen - Final
Negative for Legionella pneumophila Serogroup 1 antigen.
A negative result does not rule out the possiblity of
Legionella infection due to other serogroups or species of
Legionella. Clinical correlation is recommended.
07/31/24 06:10 Urine Streptococcus pneumoniae Antigen (M - Final
Negative for Streptococcus pneumoniae antigen.
A negative result does not exclude infection with
Streptococcus pneumoniae. Clinical correlation is
recommended.
--- NOTE | 2024-07-31 10:36 | W.PN.HOSP.TC ---
Today's Communication/Plan
-
cont Unasyn pending final ID reccs
Assessment / Plan
Assessment / Plan
28yo M with psoriatic arthritis on Cosentyx, autism presented with fevers, weakness and night sweats. Started to get sick with flu couple of weeks ago and really never entirely recovered. Treated for pneumonia of LLL with 1.6cm central abscess, not
ammendable for drain with bronchoscopy as per discussion with package pick up
A/P:
#LLL lobar pneumonia with abscess
Pulm consult: no indication for brochoscopy, will follow in the clini nc in 2-3 weeks
Unasyn as per ID
#Ester liver disease
#Obesity BMI 34.1
low fat diet
Advise weight loss
#Minimal splenic enlargement
Possibly 2/2 immunosuppressive therapy
follow with existent power engineer upon d/c
#Diverticulosis
high fiber diet
#DJD
tylenol
PT/OT
#Psoriatryc arthitis
Hold secukinumab while treated for infection
DVT ppx lovenox
Full code
I have spent at least 59min reviewing chart, test results, communication with consultants and direct patient care
Anticipated Discharge: 24 - 48 hours
Subjective/Interval History
-
Date of Service: July 31, 2024
Objective Data
-
Vital Signs:
Vital Signs
Temp Pulse Resp BP Pulse Ox
97.7 F 78 18 122/70 98
07/30/24 23:43 07/30/24 23:43 07/30/24 23:43 07/30/24 23:43 07/31/24 10:02
I&O
07/30/24 07/31/24 08/01/24
06:59 06:59 06:59
Intake Total 2094
Balance 2095 / 2095
Review of Systems
-
History Source: Patient
All other systems: Reviewed and negative
Physical Exam
-
General: Comfortable
HEENT: Normocephalic
Respiratory: Clear to Auscultation
Cardiac: Regular Rhythm
GI: Soft, Nontender and Nondistended
Neuro: Awake, Alert, Oriented and AO x 3
Psych: Calm
--- NOTE | 2024-07-31 10:39 | W.PN.ID1 ---
Date of Service
Date of Service: July 31, 2024
Today's Communication
- start augmentin given large size and immunosuppression - plan longer course - 6 weeks
- repeat CXR in about 5 weeks
- follow up in ID clinic in about 6 weeks
- ideally cosentyx would be held while on antibiotics, my office will leave a message for Dr Esperanza Dunn at [place] to please call me back
- stable for dc from ID perspective
Assessment / Plan
LLL Pneumonia/Abscess
Immunosuppression (cosyntex)
Psoriatic Arthritis
Autism/Asperbergs/bipolar
- blood cultures x2 given immunosuppression
- sputum cultures - contaminated
- s pneumo urine antigen negative
- start augmentin given large size and immunosuppression - plan longer course - 6 weeks
- repeat CXR in about 5 weeks
- follow up in ID clinic in about 6 weeks
- ideally cosentyx would be held while on antibiotics, my office will leave a message for Dr Esperanza Dunn at [place] to please call me back
- stable for dc from ID perspective
Chief Complaint
-: Other (LLL Pneumonia/Abscess, Immunosuppression)
Subjective / Review of Systems
fever appears to be resolving
bp stable
remains on room air
feels better this am
reports still having some sweats last night
otherwise better energy and appetite
Vital Signs / Physical Exam
Vital Signs
Vital Signs
Temp Pulse Resp BP Pulse Ox
97.7 F 78 18 122/70 98
07/30/24 23:43 07/30/24 23:43 07/30/24 23:43 07/30/24 23:43 07/31/24 10:02
Physical Exam
Constitutional: No Acute Distress
Cardiovascular: Regular Rate and S1/S2; Negative Murmur or Rub
Pulmonary: Clear and Symmetric; Negative Wheezes or Rales
Gastrointestinal: Soft, Non Tender, Non Distended and Normal Bowel Sounds
Skin: Warm and Dry; Negative Rash or Jaundice
Objective Data
Lab Data
Lab Results
07/30/24 05:42
07/30/24 05:42
Estimated Creat Clear > 125 ml/min 07/30/24 05:42
Most recent labs reviewed.
Micro Results:
07/31/24 06:07 Respiratory Culture - Final
Sputum Gram Stain - Final
07/31/24 06:10 Legionella Urinary Antigen - Final
Urine Negative for Legionella pneumophila Serogroup 1 antigen.
A negative result does not rule out the possiblity of
Legionella infection due to other serogroups or species of
Legionella. Clinical correlation is recommended.
Streptococcus pneumoniae Antigen (M - Final
Negative for Streptococcus pneumoniae antigen.
A negative result does not exclude infection with
Streptococcus pneumoniae. Clinical correlation is
recommended.
07/30/24 12:43 Blood Culture - Pending
Blood/Venous
07/30/24 11:41 Blood Culture - Pending
Blood/Venous
Care Review
Plan reviewed with: Physician (Dr Ring - boriso)
[2024-07-31] MEDS: AUGMENTIN 875 MG/125 MG 1 TABLET PO (12:02)
--- NOTE | 2024-07-31 12:21 | CM ---
Md entered order for discharge.
Offered VN he declined need.
Pt said he has a rode home.
PLAN Home no needs
--- NOTE | 2024-07-31 12:27 | W.DCSUMMARY ---
Discharge Summary
Discharge Data
Date of Admission: 07/30/24
Date of Discharge: 07/31/24
-
Pending Results: No
Hospital Course
28yo M with psoriatic arthritis on Cosentyx, autism presented with fevers, weakness and night sweats. Started to get sick with flu couple of weeks ago and really never entirely recovered. Treated for pneumonia of LLL with 1.6cm central abscess, not
amendable for drain with bronchoscopy as per discussion with supervisor mapping. ABx for 6 weeks, chest XR in 5 weeks wityh PCP, schedulre Rheum appt [facility] to discuss if to cont Cosentyx. Discussed plan in details with mother over the phone- she
verbalized understanding and agreement with plan. Medically stable for d/c home
I have spent at least 59min reviewing chart, test results, communication with consultants and direct patient care
Patient was managed for:
#LLL lobar pneumonia with abscess
#Ester liver disease
#Obesity BMI 34.1
#Minimal splenic enlargement
#Diverticulosis
#DJD
#Psoriatic arthitis
#Autism
#Anxiety/depression d/o
Discharge Plan
-
Patient Disposition: Home (Routine Discharge)
Discharge Diagnosis/Procedures: Pneumonia
Diet: Other diet
Additional Diets: High fiber diet
Driving Restrictions: As prior to admission
Others Tests: CHest XR in 5 weeks
Referrals:
Alexis Ellsworth MD [Family Provider] -
Gaurav Joy MD [Active] -
(Exactly or nurse practitioner
Show PFTs, radiographic follow-up of pneumonia/abscess and sleep apnea workup)
Renay Amado MD [Active] - in three to four weeks
Additional Discharge Medication Instructions: Schedule chest XR in 5 weeks after discharge with your family doctor
Schedule visit to fence rider for evaluation when to restart Cosentyx
Prescriptions:
New
amoxicillin-pot clavulanate 875-125 mg Tablet
1 tab PO Q12 Qty: 41 0RF
guaifenesin 600 mg Tablet Extended Release 12hr
1,200 mg PO Q12 Qty: 60 0RF
Continued
zolpidem [Ambien CR] 12.5 MG tablet,ext release multiphase
12.5 mg PO HS PRN (Reason: sleep)
acetaminophen 325 MG tablet
650 mg PO Q6HPRN PRN (Reason: mild pain/ fever>100.5F) 0RF
sertraline 100 mg Tablet
150 mg PO DAILY
Zepbound 12.5 mg/0.5 mL Pen Injector
12.5 mg SC QWEEK
Held
Cosentyx 150 mg/mL Syringe
300 mg SC Q4W
Hold Instructions: Until seen by Shop Helper
Discharge Orders:
Discharge Patient (As Directed); Ordered 07/31/24
Ordered By: Teo Ring
Discharge Date and Time
Print Language: GREENLANDIC
[2024-07-31 12:30] VITALS: BP 131/72
--- NOTE | 2024-08-02 08:50 | PN.CDI ---
Addendum entered and electronically signed by Teo Ring MD 08/07/24 11:28:
no sepsis
Original Note:
CDI
- -
CDI:
Physician Documentation Request
Admit Date: 07/30/24 02:08
Dear Doctor Jhonathan,
Patient admitted with pneumonia.
H&P: 'LLL Pneumonia / Abscess, Sepsis secondary to the above'
DC Summary: 'Patient was managed for:#LLL lobar pneumonia with abscess'
Selected Entries
07/30/24
00:12 07/30/24
01:09
Temp 101.4 F H 101.1 F H
07/30/24
00:12 07/30/24
03:55 07/30/24
07:55
Pulse 97 97 92
07/30/24
00:12 07/30/24
03:55 07/30/24
15:55
Resp Rate 24 24 20
The diagnosis of sepsis was documented on 07/30, but is not consistently noted in subsequent documentation.
Please clarify the following:
____ - Sepsis was present on admission and is now resolved.
____ - Sepsis was present on admission and is still being monitored, evaluated or treated
____ - Sepsis was ruled out
____ - Sepsis is still a likely, suspected, probable diagnosis
____ - Other
____ - Unable to determine
Use of terms such as suspected, likely, concern for, or probable (associated with a specific diagnosis that is being evaluated, monitored, or treated as if it exists) are acceptable and can be coded in the inpatient setting, when documented at the
time of discharge.
Thank you,
Yadira Briceño RN, BSN
CDI Specialist
Available via [employer] text
Please use your independent medical judgment in providing your response.
== END 2024-07-31 13:53 | disposition home or self-care (01) | DRG 177 ==
LOC: 4 EAST ACU 02:08
PROVIDERS: ADMITTING PHYSICIAN Hospitalist; ATTENDING PHYSICIAN Internal Medicine; EMERGENCY PHYSICIAN Emergency Medicine; FAMILY PHYSICIAN Internal Medicine; OTHER PHYSICIAN Internal Medicine Critical Care Medicine; OTHER PHYSICIAN Student in an Organized Health Care Education/Training Program
DX: J85.1 Abscess of lung with pneumonia (principal); J18.1 Lobar pneumonia, unspecified organism; F84.5 Asperger's syndrome; F31.30 Bipolar disorder, current episode depressed, mild or moderate severity, unspecified; D84.821 Immunodeficiency due to drugs; K76.9 Liver disease, unspecified; Z68.34 Body mass index [BMI] 34.0-34.9, adult; E66.9 Obesity, unspecified; K57.30 Diverticulosis of large intestine without perforation or abscess without bleeding; M19.90 Unspecified osteoarthritis, unspecified site; L40.50 Arthropathic psoriasis, unspecified; F41.9 Anxiety disorder, unspecified; J45.909 Unspecified asthma, uncomplicated; D64.9 Anemia, unspecified; Z79.620 Long term (current) use of immunosuppressive biologic
CPT/HCPCS: 80048; 85027; 87040; 87205; 87449; 87899; 94667; 94668; 96361; 96374; 99285

== ENCOUNTER → 2024-09-16 15:59 | Outpatient (REF) | payer OTHER, SELFPAY | LOC: RAD 15:59 | PROVIDERS: ATTENDING PHYSICIAN Student in an Organized Health Care Education/Training Program; FAMILY PHYSICIAN Internal Medicine | DX: M79.10 Myalgia, unspecified site (principal); R50.9 Fever, unspecified | CPT/HCPCS: 71046 ==

== ENCOUNTER → 2024-12-30 08:48 | Outpatient (REF) | payer SELFPAY | LOC: RCS 08:48 | PROVIDERS: ATTENDING PHYSICIAN Internal Medicine | DX: R00.2 Palpitations (principal); I48.0 Paroxysmal atrial fibrillation; R40.0 Somnolence | CPT/HCPCS: 93225; 93226 ==